=== PATIENT | male | born 1995 | race Caucasian/White ===

== ENCOUNTER 2016-11-01 00:02 | Emergency (ER) | payer OTHER | END 2016-11-01 03:00 | disposition home or self-care (01) | LOC: ER 00:02 | DX: S01.112A Laceration without foreign body of left eyelid and periocular area, initial encounter (principal); S60.512A Abrasion of left hand, initial encounter; S60.511A Abrasion of right hand, initial encounter; S80.211A Abrasion, right knee, initial encounter; S50.812A Abrasion of left forearm, initial encounter; S50.811A Abrasion of right forearm, initial encounter; Z23 Encounter for immunization; V03.90XA Pedestrian on foot injured in collision with car, pick-up truck or van, unspecified whether traffic or nontraffic accident, initial encounter; Y92.410 Unspecified street and highway as the place of occurrence of the external cause | CPT/HCPCS: 73552-RT; 90471 ==